=== PATIENT | female | born 1955 | race Caucasian/White ===

== ENCOUNTER → 2020-09-20 03:26 | Outpatient (CLI) | payer MEDICARE, OTHER, SELFPAY ==
[2020-09-20 18:26] LABS: SARS-CoV-2 RNA PCR Negative
== END ==
PROVIDERS: Visit Provider Internal Medicine Critical Care Medicine
DX: Z20.822 Contact with and (suspected) exposure to COVID-19 (principal)
CPT/HCPCS: C9803; U0003; U0005

== ENCOUNTER 2020-09-22 08:20 | Outpatient (CLI) | payer MEDICARE, OTHER, SELFPAY ==
--- NOTE | 2020-10-09 12:09 | WPDSLEEPSTUD ---
Sleep Study Date of Study: 09/22/20 Ordering Provider: Filiberto Covarrubias MD Interpreting Physician: Noni Patel MD Sleep Study Type: Polysomnogram Height: 1.57 m Weight: 77.111 kg Body Mass Index: 31.1 Neck Circumference (inches): 16 [place]: 16 Reason for Sleep Study Hypersomnia, snoring Sleep History Elsa Coffman is a 65-year-old female with a deviated septum and nasal polyps. She has fragmented sleep by history. She is a restless sleeper and she does not feel rested in the morning. She has daytime fatigue and she moves frequently throughout the night. She wakes herself up coughing and sweating. She has been told that she snores, and frequently it is loud enough that others complain about it. She does not awaken from sleep feeling short of breath. She occasionally awakens at night with heartburn, belching or coughing. She occasionally has trouble sleep with a cold. She does not wake up gasping for breath at night and she does not have breathing problems reported to her by others. She frequently sweats excessively at night. She does not notice her heart pounding or beating irregularly night. She frequently falls asleep during the day and this occurs involuntarily. She does not fall asleep while driving. She does not have loss of muscle tone with strong emotion. She occasionally has daytime difficulties due to her excessive sleepiness. She does not feel paralyzed on waking or falling asleep. She rarely has vivid dreamlike scenes upon awakening or falling asleep. She is not afraid to go to sleep. She occasionally has nightmares, occasionally remembers her dreams and occasionally has racing thoughts. She occasionally feels sad, depressed, or anxious. She occasionally has muscular tension. She occasionally notices parts of her body jerking. 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 She rarely kicks at night. She rarely has crawling and aching feelings in her legs at night. She does not have any kind of leg pain at night. She rarely has morning jaw pain. She occasionally grinds her teeth during sleep. She frequently is bothered by pain during the day. She has never awakened by leg pain at night. She frequently wakes up feeling stiff in the morning with sore achy muscles and pain in the neck and spine. Normal bedtime is between 9 and 10:00 p.m. falling asleep within 10-30 minutes typically waking 3 or 4 times during the night. These awakenings last 3 or 4 minutes. She wakes the morning at 6:00 a.m.. She estimates getting between 6 and 7 hours of sleep each night. She does not generally take naps in the afternoon or evening. A short nap may be refreshing. She is drowsy in the morning for 3 hours or longer. She feels better in the morning compared other times a day. Habits: Quit tobacco 12 years ago. Caffeine 4-5 servings a day. No alcohol or recreational drugs. FORMERLY [facility] Past Medical History Medical History (Updated 10/09/20 @ 13:49 by Noni Patel MD) FH: cholecystectomy GERD (gastroesophageal reflux disease) Hypertension Myasthenia gravis Osteoporosis Peripheral neuropathy Surgical History Surgical History (Updated 10/09/20 @ 13:43 by Noni Patel MD) H/O thymectomy H/O: hysterectomy History of carpal tunnel surgery Hx of cholecystectomy Family History Family History Mother Hypertension Father Family history of chronic obstructive pulmonary disease Social History Social History Smoking status: Former smoker Smoking end date: 06/02/07 Alcohol intake: never Gender identity (if verbalized by the patient): Female Medications Medications: Venlafaxine 37.5 mg; 1 in the morning and 2 after dinner cyclobenzaprine 10 mg nightly Pyridostigmine bromide 60 mg t.i.d. as needed for fatigue secondary to myasthenia gravis Sleep Procedure This test was performed using the S
[2020-10-09 13:56] VITALS: BMI 31.1
== END 2020-09-22 08:21 | disposition home or self-care (01) ==
LOC: ANHCSM 08:21
PROVIDERS: Visit Provider Otolaryngology
DX: G47.33 Obstructive sleep apnea (adult) (pediatric) (principal); E66.9 Obesity, unspecified; Z68.31 Body mass index [BMI] 31.0-31.9, adult
CPT/HCPCS: 95810